=== PATIENT | male | born 1965 | race Hispanic/Latino ===

== ENCOUNTER 2020-06-29 02:44 | Inpatient (IN) | payer SELFPAY ==
[~2020-06-29] VITALS: Ht 175.3 cm; Wt 92.5 kg
[2020-06-29] MEDS ORDERED: ONDANSETRON HCL 4 MG/2 ML VIAL ONE ×3 (03:08→13:35)
[2020-06-29] MEDS ORDERED: FENTANYL CITRATE PF 50 MCG/1 ML 2ML VIAL ONE ×2 (03:09→05:46)
[2020-06-29 03:19] LABS: BASOPHILS % (AUTO) 0.3 % (0.0-5.0); EOSINOPHILS % (AUTO) 0.3 % (0.0-8.0); HEMATOCRIT 41.1 % (42-54); LYMPHOCYTES % (AUTO) 15.2 % (21.0-51.0); MEAN CORPUSCULAR HEMOGLOBIN 29.7 pg (27.0-33.0); MEAN CORPUSCULAR HGB CONC 34.1 g/dL (32.0-36.0); MEAN CORPUSCULAR VOLUME 87.3 fL (79-99); MONOCYTES % (AUTO) 3.4 % (3.0-13.0); NEUTROPHILS % (AUTO) 80.5 % (40.0-77.0); PLATELET COUNT (AUTO) 331 K/uL (130-400); RED BLOOD CELL COUNT(AUTO) 4.71 MIL/uL (4.50-6.20); RED CELL DISTRIBUTION WIDTH 12.6 % (11.0-15.5); WHITE BLOOD COUNT (AUTO) 15.8 K/uL (4.8-10.8)
[2020-06-29 03:29] LABS: POTASSIUM 3.5 mmol/L (3.5-5.1)
[2020-06-29 03:34] LABS: ALBUMIN 3.8 g/dL (3.5-5.0); BILIRUBIN,TOTAL 0.4 mg/dL (0.2-1.0); TOTAL PROTEIN, SERUM 7.4 g/dL (6.0-8.3)
[2020-06-29] MEDS ORDERED: KETOROLAC TROMETHAMINE 30MG/ML ONE (03:39)
[2020-06-29 06:02] LABS: APPEARANCE,URINE Turbid (CLEAR); BILIRUBIN,URINE Negative (NEGATIVE); COLOR,URINE Yellow (YELLOW); GLUCOSE, URINE (UA) Negative (NEGATIVE); KETONES,URINE Negative (NEGATIVE); LEUKOCYTE ESTERASE ,URINE Negative (NEGATIVE); NITRATE,URINE Negative (NEGATIVE); OCCULT BLOOD,URINE Negative (NEGATIVE); PH,URINE >=9.0 (5.0-8.0); PROTEIN,URINE Negative (NEGATIVE); UROBILINOGEN,URINE 0.2 mg/dL (0.2-1.0)
[2020-06-29 06:15] LABS: AMORPHOUS SEDIMENT,UR Many /LPF (None Seen); BACTERIA,URINE None Seen /HPF (None Seen); RBC,URINE None Seen /HPF (0-1); SQUAMOUS EPITHELIAL CELL,UR Rare /HPF (0-2); WBC,URINE None Seen /HPF (0-1)
[2020-06-29] MEDS ORDERED: MORPHINE SULFATE 4 MG/1ML SYG ONE ×2 (09:11→13:35)
[2020-06-29] MEDS ORDERED: MORPHINE SULFATE 4 MG/1ML SYG IVP SCH (09:30)
[2020-06-29] MEDS ORDERED: MORPHINE SULFATE 2 MG/ML 1ML SYG IVP PRN ×2 (09:30→10:30)
[2020-06-29] MEDS ORDERED: ONDANSETRON HCL 4 MG/2 ML VIAL IVP PRN ×2 (09:30→10:30)
[2020-06-29] MEDS ORDERED: METOPROLOL TARTRATE 1 MG/ML 5ML VIAL IV PRN (10:30)
[2020-06-29] MEDS ORDERED: ENALAPRILAT DIHYDRATE 1.25 MG/ML 2ML VIAL IVP PRN (10:30)
[2020-06-29] MEDS ORDERED: MORPHINE SULFATE 4 MG/1ML SYG IV PRN (10:30)
[2020-06-29] MEDS ORDERED: ACETAMINOPHEN 325 MG TAB PO PRN (10:30)
[2020-06-29] MEDS: ZOSYN 3.375GM+NS 50ML 50 ML IV SCH ×2 (10:30→18:21)
[2020-06-29] MEDS: SODIUM CHLORIDE 0.9% 1000ML 1,000 ML IV SCH (10:30)
[2020-06-29 16:39] VITALS: BP 167/68
[2020-06-29] MEDS ORDERED: FENO50CA4 PO (17:36)
[2020-06-29] MEDS ORDERED: LOSA50TA64 PO (17:36)
[2020-06-29 19:34] VITALS: BP 104/68
[2020-06-29] MEDS: MORPHINE SULFATE 4 MG/1ML SYG IVP PRN (21:35)
[2020-06-29 23:53] VITALS: BP 146/63
[2020-06-30] MEDS: ZOSYN 3.375GM+NS 50ML 50 ML IV SCH ×3 (04:22→18:15)
[2020-06-30 04:49] VITALS: BP 162/51
[2020-06-30 05:41] LABS: BASOPHILS % (AUTO) 0.4 % (0.0-5.0); EOSINOPHILS % (AUTO) 1.6 % (0.0-8.0); LYMPHOCYTES % (AUTO) 17.6 % (21.0-51.0); MEAN CORPUSCULAR HEMOGLOBIN 29.1 pg (27.0-33.0); MEAN CORPUSCULAR HGB CONC 32.4 g/dL (32.0-36.0); MEAN CORPUSCULAR VOLUME 89.6 fL (79-99); MONOCYTES % (AUTO) 8.5 % (3.0-13.0); NEUTROPHILS % (AUTO) 71.6 % (40.0-77.0); PLATELET COUNT (AUTO) 288 K/uL (130-400); RED BLOOD CELL COUNT(AUTO) 4.13 MIL/uL (4.50-6.20); RED CELL DISTRIBUTION WIDTH 12.8 % (11.0-15.5); WHITE BLOOD COUNT (AUTO) 10.7 K/uL (4.8-10.8)
[2020-06-30 06:12] LABS: ALBUMIN 2.9 g/dL (3.5-5.0); BILIRUBIN,TOTAL 0.6 mg/dL (0.2-1.0); POTASSIUM 3.9 mmol/L (3.5-5.1); TOTAL PROTEIN, SERUM 6.1 g/dL (6.0-8.3)
[2020-06-30 07:00] VITALS: BP 149/84
[2020-06-30 11:00] VITALS: BP 170/64
[2020-06-30 16:00] VITALS: BP 163/60
[2020-06-30] MEDS: SODIUM CHLORIDE 0.9% 1000ML 1,000 ML IV SCH ×2 (16:30→21:17)
[2020-06-30] MEDS: MORPHINE SULFATE 4 MG/1ML SYG IVP PRN (18:13)
[2020-06-30 20:01] VITALS: BP 156/67
[2020-06-30 23:49] VITALS: BP 156/73
[2020-07-01] VITALS (24 sets, daily range): BP systolic 119–161; BP diastolic 57–86
[2020-07-01] MEDS: ZOSYN 3.375GM+NS 50ML 50 ML IV SCH ×4 (01:57→18:42)
[2020-07-01] MEDS ORDERED: LACTATED RINGERS 1000ML 1,000 ML IV ONE (09:06)
[2020-07-01] MEDS ORDERED: BUPIVACAINE/PF 0.5% 30ML VIAL ONE (10:15)
[2020-07-01] MEDS ORDERED: ROCURONIUM 10MG/1ML SYR 10 MG/ML ML ONE (10:57)
[2020-07-01] MEDS ORDERED: GLYCOPYRROLATE 1 MG/5 ML SYRINGE ONE (10:57)
[2020-07-01] MEDS ORDERED: NEOSTIGMINE 5MG/5ML SYR IV ONE (10:57)
[2020-07-01] MEDS ORDERED: LIDOCAINE PF 2% 5ML ABBOJECT ONE (10:57)
[2020-07-01] MEDS ORDERED: PROPOFOL 10 MG/ML 20ML VIAL IV ONE (10:57)
[2020-07-01] MEDS ORDERED: PIPERACILLIN SODIUM/TAZOBACTAM 3.375 GM VIAL IV ONE (11:02)
[2020-07-01] MEDS ORDERED: FENTANYL CITRATE PF 50 MCG/1 ML 2ML VIAL ONE (11:17)
[2020-07-01] MEDS ORDERED: DEXAMETHASONE SOD PHOSPHATE 4 MG/ML 1ML VIAL ONE (11:40)
[2020-07-01] MEDS ORDERED: ONDANSETRON HCL 4 MG/2 ML VIAL ONE (11:41)
[2020-07-01] MEDS ORDERED: MEPERIDINE-PF 25 MG/ML SYG ONE (12:04)
[2020-07-01] MEDS: SODIUM CHLORIDE 0.9% 1000ML 1,000 ML IV SCH (12:30)
[2020-07-01] MEDS: MORPHINE SULFATE 4 MG/1ML SYG IVP PRN ×2 (13:18→18:29)
[2020-07-01] MEDS: LACTATED RINGERS 1000ML 1,000 ML IV SCH (13:45)
[2020-07-01] MEDS: KETOROLAC TROMETHAMINE 30MG/ML IV PRN (23:05)
[2020-07-02] MEDS: ZOSYN 3.375GM+NS 50ML 50 ML IV SCH ×2 (02:10→12:20)
[2020-07-02] MEDS: LACTATED RINGERS 1000ML 1,000 ML IV SCH ×2 (02:10→09:45)
[2020-07-02 03:10] VITALS: BP 110/51
[2020-07-02 03:43] LABS: BASOPHILS % (AUTO) 0.2 % (0.0-5.0); EOSINOPHILS % (AUTO) 0.8 % (0.0-8.0); LYMPHOCYTES % (AUTO) 16.8 % (21.0-51.0); MEAN CORPUSCULAR HEMOGLOBIN 29.5 pg (27.0-33.0); MEAN CORPUSCULAR HGB CONC 32.9 g/dL (32.0-36.0); MEAN CORPUSCULAR VOLUME 89.5 fL (79-99); MONOCYTES % (AUTO) 8.3 % (3.0-13.0); NEUTROPHILS % (AUTO) 73.4 % (40.0-77.0); PLATELET COUNT (AUTO) 246 K/uL (130-400); RED CELL DISTRIBUTION WIDTH 12.3 % (11.0-15.5); WHITE BLOOD COUNT (AUTO) 10.8 K/uL (4.8-10.8)
[2020-07-02 03:59] LABS: ALBUMIN 2.5 g/dL (3.5-5.0); BILIRUBIN,TOTAL 0.6 mg/dL (0.2-1.0); CREATININE 0.9 mg/dL (0.5-1.5); POTASSIUM 4.2 mmol/L (3.5-5.1); TOTAL PROTEIN, SERUM 6.2 g/dL (6.0-8.3)
[2020-07-02 07:30] VITALS: BP 115/61
[2020-07-02] MEDS ORDERED: LOSARTAN 50 MG TABLET PO SCH (09:00)
[2020-07-02 11:00] VITALS: BP 132/65
[2020-07-02] MEDS ORDERED: METR-172 PO (12:25)
[2020-07-02] MEDS: KETOROLAC TROMETHAMINE 30MG/ML IV PRN (15:54)
[2020-07-02 16:00] VITALS: BP 113/57
== END 2020-07-02 18:15 | disposition home or self-care (01) | DRG 418 ==
LOC: EDH 02:44 → EDHIP 02:45 → 3AH 16:19
PROVIDERS: ADMIT Family Medicine; ATTEND Family Medicine
PROC: 0FT44ZZ Resection of Gallbladder, Percutaneous Endoscopic Approach (ICD-10-PCS; principal; 2020-07-01 11:21)
DX: K80.00 Calculus of gallbladder with acute cholecystitis without obstruction (principal); D62 Acute posthemorrhagic anemia; K76.0 Fatty (change of) liver, not elsewhere classified; I10 Essential (primary) hypertension; E78.5 Hyperlipidemia, unspecified; Z87.891 Personal history of nicotine dependence; Z20.822 Contact with and (suspected) exposure to COVID-19
CPT/HCPCS: 36415; 76705; 78227; 80053; 81001; 82550; 83605; 83690; 84484; 85025; 87426; 93005; A9537; G0378; J1100; J1885; J2001; J2175; J2270; J2405; J2543; J2704; J2710; J3010; J3490; J7030; J7120